=== PATIENT | female | born 1960 | race Hispanic/Latino ===

== ENCOUNTER 2016-03-16 03:00 | Emergency (ER) | payer SELFPAY ==
[~2016-03-16] VITALS: Ht 157.5 cm; Wt 59.1 kg
[~2016-03-16 03:00] MED LIST: GLIP10TA2 PO; [UNRECOGNIZED DRUG - CODE] PO
[2016-03-16 03:07] VITALS: BP 143/81; PULSE 93; RESP 20; O2SAT 96
--- NOTE | 2016-03-16 03:42 | ED.REPORT ---
HPI-General Illness Date of Service Mar 16, 2016 ED Provider: Jan Mejia MD Patient is a 55 year old female with diabetes mellitus who presents to the ED with flu-like symptoms for the past 3 days. Patient reports associated fever ( 38.2C in the ED), headache, nausea, vomiting, decreased energy, cough, and chest pain with cough. The patient did not receive her influenza vaccine this year. Nursing Notes Stated Complaint: COUGH,HEADACHE Chief Complaint: General Complaint Nursing Notes Reviewed: Yes Allergies: Coded Allergies: No Known Allergies (Verified Allergy, Unknown, 10/08/14) Scheduled Cephalexin-Expunged Drug, Do Not Renew! (Keflex-Expunged Drug, Do Not Renew!) 500 Mg Capsule 500 MG PO QID Ondansetron ODT (Ondansetron ODT) 8 Mg Tab.rapdis 8 MG PO TID Potassium Chloride (Potassium Chloride) 20 Meq Tab.er.prt 20 MEQ PO DAILY TAKE WITH FOOD glipiZIDE-Expunged Drug, Do Not Renew! (glipiZIDE-Expunged Drug, Do Not Renew!) 10 Mg Tablet 10 MG PO BIDAC Caution- Look Alike, Sound Alike Drug General Time Seen by MD: 03:36 Chief Complaint Flu-like illness Hx Obtained From: Patient, Other family... Arrived By: Walk-in Sudden in Onset?: No Onset Occurred: 3 days ago Location: : Chest: Head Quality: Painful Severity: Current: Moderate Severity: Maximum: Moderate Recent Healthcare: No recent doctor visit, No recent hospitalization Similar Sx Previous: No Past Medical History Past Medical History Chronic cystocele Reports: Diabetes mellitus Past Surgical History none reported Family History non-contributory Smoking History Never Smoker Social History Alcohol Use: Denies alcohol use Drug Use: Denies drug use Other Social History: Good social support, Local resident Ambulatory Status Independent Review of Systems + decreased injury Full Review of Systems Constitutional: Reports: Fever Respiratory: Reports: Non-productive cough, Pleuritic pain GI: Reports: Nausea, Vomiting Musculoskeletal: Reports: Myalgia Neurologic: Reports: Headache Complete sys rev & neg: except as marked. Physical Exam Vital Signs Vital Signs Date Time Temp Pulse Resp B/P Pulse Ox O2 Delivery O2 Flow Rate FiO2 03/16/16 05:28 81 18 137/78 97 Room Air 03/16/16 04:50 37.7 78 20 143/76 98 Room Air 03/16/16 03:07 38.2 93 20 143/81 96 Room Air Initial VS: Reviewed, Vital signs abnormal ENT: Conjunctiva normal, No scleral icterus Neck: Supple, Full range of motion Extremities: Vascular intact, Neuro intact, No swelling Skin: Warm, Dry, No cyanosis Neurologic: Alert, Oriented, Nonfocal Psychiatric: Mood/affect normal, Behavior normal, Normal thought content General/Constitutional: Awake, Alert Distress / Hydration: Positive: Distress mild, Distress moderate Appearance / Presentation: Positive: Ill appearing/not toxic, Obese flushed face Head / Eyes: Atraumatic, Normocephalic, PERRL, Conjunctiva NL ENT: Airway patent Mouth: Positive: Mucous membranes dry (lips dry ) Neck: Supple, No meningismus, Full range of motion Respiratory / Chest: Breath sounds NL, Breath sounds = bilat, No respiratory distress, No rales, No rhonchi, No wheezing Cardiovascular: Regular rhythm, Heart sounds NL Heart Rate / Rhythm: Positive: Tachycardia Abdomen: Soft Tenderness/Guarding/Rebound: Positive: Tender diffuse Back: No CVA tenderness Interpretation & Diagnostics Interpretation & Diagnostics: NEGATIVE FOR INFLUENZA TYPE A AND B Lab Results Interpretation Test 03/16/16 04:35 Urine Color Yellow (YELLOW) Urine Appearance Slightly cloudy Urine pH 6.0 (5.0-8.0) Urine Specific Nikolai 1.025 (1.003-1.035) Urine Protein Negativemg/dL (NEG,TRACE) Urine Glucose (UA) >1000mg/dL (NEGATIVE) Urine Ketones Tracemg/dL (NEGATIVE) Urine Occult Blood Negative (NEGATIVE) Urine Nitrite Negative (NEGATIVE) Urine Bilirubin Negative (NEGATIVE) Urine Urobilinogen Normalmg/dL (NORMAL) Urine Leukocyte Esterase Small (NEGATIVE) Urine RBC 3-10/hpf (0-2) Urine WBC 11-50/hpf (0-5) Urine Epithelial Cells Many/hpf (NONE-MOD) Urine Crystals None seen (NONE SEEN) Urine Bacteria Few/hpf (NONE-FEW) Urine Hyaline Casts None/lpf (NONE) Urine Granular Casts None seen (NONE SEEN) Urine Waxy Casts None seen (NONE SEEN) Urine Red Blood Cell Casts None seen (NONE SEEN) Urine White Blood Cell Casts None seen (NONE SEEN) Urine Mucus Present (None Seen) Urine Trichomonas None seen (NONE SEEN) Urine Yeast None (NONE SEEN) Urine Culture Reflexed Indicated Lab Results Interpretation: Urinalysis indicative of urinary tract infection, culture pending Re-Eval/Medical Decision Med Decision/Clinical Course 55-year-old female presented with nonspecific flulike symptoms. Influenza is negative. She was found to have 11-50 white cells per high-power field, culture pending. She was started on Keflex and discharged home. Source of Hx: Old records Time of Eval: 04:54 Patient Status: Condition improved Re-Evaluation/Progress Note: Patient will be treated for a UTI. Patient understands and agrees with the plan to be discharged home. Discharge instructions and follow-up discussed. All questions were addressed. Return to the ED warnings given. Counseled Regarding: Diagnosis, Lab results, Need for follow-up, When/why to return to ED Discharge & Departure Primary Impression: Urinary tract infection Urinary tract infection type: site unspecified Hematuria presence: without hematuria Qualified Code: N39.0 - Urinary tract infection, site not specified Disposition: Home Discharge Condition All VS Reviewed: Yes Condition: Stable Patient Instructions: Urinary Tract Infection in Women (ED) Additional Instructions: Influenza test is negative. You have a urinary tract infection. Cephalexin 500 mg by mouth 3 times a day, #30 dispensed. Drink plenty of fluids. Tylenol as needed for fever and aches. Referrals: [facility] (PCP) Rose Marieibshannon Attestation Portions of this note were transcribed by Angelica Gomez. I, Dr. Mejia, personally performed the history, physical exam and medical decision-making; I reviewed and confirmed the accuracy of the information in the transcribed note. Signed by: Saadia Casas, 03/16/2016 0500 copies to: [facility] Jan Mejia MD Mar 16, 2016 03:42 Angelica Gomez Mar 16, 2016 03:47
[2016-03-16 04:50] VITALS: BP 143/76; PULSE 78; RESP 20; O2SAT 98
[2016-03-16 04:52] LABS: APPEARANCE,URINE SLIGHTLY CLOUDY (CLEAR,HAZY); COLOR,URINE YELLOW (YELLOW)
[2016-03-16 04:53] LABS: OCCULT BLOOD,URINE NEGATIVE (NEGATIVE); UROBILINOGEN,URINE NORMAL (NORMAL)
[2016-03-16] MEDS ORDERED: ONDA8TAB10 PO (04:56)
[2016-03-16] MEDS ORDERED: POTA20TA16 PO (04:56)
[2016-03-16 05:28] VITALS: BP 137/78; PULSE 81; RESP 18; O2SAT 97
[2016-03-16] MEDS ORDERED: _Cephalexin 500 mg Capsule PO SCH (08:30)
== END 2016-03-16 05:25 | disposition home or self-care (01) ==
LOC: SED 03:00
DX: N39.0 Urinary tract infection, site not specified (principal); R51 Headache; R11.2 Nausea with vomiting, unspecified; R05 Cough; R07.89 Other chest pain; B96.5 Pseudomonas (aeruginosa) (mallei) (pseudomallei) as the cause of diseases classified elsewhere; E11.9 Type 2 diabetes mellitus without complications